=== PATIENT | male | born 1955 | race Caucasian/White ===

== ENCOUNTER 2022-12-03 13:52 | Emergency (ER) | payer MEDICARE, MEDICAID ==
[~2022-12-03] VITALS: Ht 167.6 cm; Wt 59.0 kg
[2022-12-03] MEDS ORDERED: ACETAMINOPHEN 325MG TABLET PO ONE (14:00)
[2022-12-03 14:09] VITALS: BP 158/86
[2022-12-03] MEDS ORDERED: ACETAMINOPHEN 325MG TABLET PO NR (15:45)
== END 2022-12-03 16:00 | disposition home or self-care (01) ==
LOC: ER 13:52
DX: S93.691A Other sprain of right foot, initial encounter (principal); S90.31XA Contusion of right foot, initial encounter; I10 Essential (primary) hypertension; W10.8XXA Fall (on) (from) other stairs and steps, initial encounter; Y93.89 Activity, other specified; Y92.018 Other place in single-family (private) house as the place of occurrence of the external cause
CPT/HCPCS: 73610; 73630; 99284

== ENCOUNTER 2024-07-23 16:57 | Inpatient (IN) | payer MEDICARE, MEDICAID ==
[~2024-07-23] VITALS: Ht 165.1 cm; Wt 60.3 kg
[2024-07-23 17:53] LABS: CHLORIDE 109 mEq/L (98-107); POTASSIUM 3.2 mEq/L (3.5-5.1); SODIUM 141 mEq/L (136-145)
[2024-07-23 17:54] LABS: CALCIUM 8.7 mg/dL (8.7-10.4); CARBON DIOXIDE 26 mEq/L (21-32); INR 1.1; PARTIAL THROMBOPLASTIN TIME 31.9 sec (23.4-31.0); PROTHROMBIN TIME 12.6 sec (9.6-11.0)
[2024-07-23 17:59] LABS: CREATININE 1.7 mg/dL (0.6-1.3); GLUCOSE 104 mg/dL (70-105); UREA NITROGEN BLOOD 15 mg/dL (9-23)
[2024-07-23 18:00] LABS: BASOPHILS % 1.3 % (0.0-2.0); EOSINOPHILS % 1.3 % (0.0-5.0); HEMOGLOBIN. 11.5 g/dL (14.0-18.0); LYMPHOCYTES % 24.1 % (20.0-50.0); MEAN CORPUSCULAR HEMOGLOBIN 20.7 pg (28.0-32.0); MEAN CORPUSCULAR HGB CONC 31.1 g/dL (31.0-37.0); MEAN CORPUSCULAR VOLUME 66.8 fL (80.0-94.0); MEAN PLATELET VOLUME 8.5 fl (7.4-10.4); MONOCYTES % 4.5 % (2.0-8.0); NEUTROPHILS % 68.8 % (40.0-76.0); PLATELET 284 x1000/uL (130-400); RED BLOOD CELL COUNT 5.54 mill/uL (4.7-6.1); RED CELL DISTRIBUTION WIDTH 19.6 % (11.6-14.6); TROPONIN I HIGH SENSITIVITY 34 ng/L (3.0-53); WHITE BLOOD COUNT 7.6 x1000/uL (4.5-11.0)
[2024-07-23 18:01] LABS: ADD RBC MORPHOLOGY YES; DIFFERENTIAL COMMENT 1
[2024-07-23 18:46] LABS: ALANINE AMINOTRANSFERASE 20 IU/L (10-49); ALBUMIN 3.8 g/dL (3.2-4.8); ASPARTATE AMINOTRANSFERASE 37 IU/L (<34); BILIRUBIN DIRECT 0.3 mg/dL (<=3.0); BILIRUBIN TOTAL 0.8 mg/dL (0.1-1.0); PROTEIN TOTAL 6.3 g/dL (6.0-8.3)
[2024-07-23 18:58] LABS: ANISOCYTOSIS 1+; HYPOCHROMASIA 1+; MICROCYTOSIS 1+; PLATELET ESTIMATE NORMAL
[2024-07-23] MEDS: FUROSEMIDE 40MG/4ML VIAL IVP ONE (19:25)
[2024-07-24] VITALS (7 sets, daily range): BP systolic 117–127; BP diastolic 78–93; PULSE 70–94; RESP 16–20; TEMP 36.22512–36.696; O2SAT 99–100
[2024-07-24] MEDS ORDERED: ONDANSETRON HCL 4MG/2ML INJ IV PRN (08:00)
[2024-07-24] MEDS ORDERED: IPRATROPIUM/ALBUTEROL 0.5-3(2.5)MG/3ML NEB HHN PRN (08:00)
[2024-07-24 08:15] LABS: CLARITY URINE CLEAR (CLEAR); COLOR URINE YELLOW (YELLOW); GLUCOSE URINE NEGATIVE (NEGATIVE); KETONES URINE NEGATIVE (NEGATIVE); LEUKOCYTE ESTERASE URINE NEGATIVE (NEGATIVE); NITRITE URINE NEGATIVE (NEGATIVE); OCCULT BLOOD URINE NEGATIVE (NEGATIVE); PROTEIN URINE 2+ (NEGATIVE); SPECIFIC GRAVITY URINE 1.009 (1.005-1.030); UROBILINOGEN URINE 0.2 E.U./dL (0.2-1.0)
[2024-07-24] MEDS: POTASSIUM CHLORIDE 20MEQ TABLET SR PO SCH (08:19)
[2024-07-24] MEDS: ENOXAPARIN 40MG/0.4ML SYR SUBCUT SCH (08:19)
[2024-07-24] MEDS: FUROSEMIDE 40MG/4ML VIAL IVP SCH (08:20)
[2024-07-24 08:31] LABS: *AMPHETAMINES SCREEN URINE NEGATIVE (NEGATIVE); *BARBITURATES SCREEN URINE NEGATIVE (NEGATIVE); *BENZODIAZEPINES SCREEN URINE NEGATIVE (NEGATIVE); *COCAINE SCREEN URINE PRESUMPTIVE POSITIVE (NEGATIVE); METHADONE URINE SCREEN NEGATIVE (NEGATIVE); OPIATES URINE SCREEN NEGATIVE (NEGATIVE)
[2024-07-24 08:32] LABS: CANNABINOID URINE SCREEN NEGATIVE (NEGATIVE); ECSTASY MDMA SCREEN URINE NEGATIVE (NEGATIVE); PHENCYCLIDINE URINE SCREEN NEGATIVE (NEGATIVE)
[2024-07-24 08:38] LABS: BACTERIA URINE NONE SEEN; RBC URINE NONE SEEN /hpf (0-2); SQUAMOUS EPITHELIAL CELL URINE NONE SEEN /lpf (RARE/1+); WBC URINE 0-2 /hpf (0-2); YEAST URINE NONE SEEN
[2024-07-24 09:29] LABS: HEMATOCRIT. 39.2 % (42.0-52.0); HEMOGLOBIN. 12.2 g/dL (14.0-18.0); MEAN CORPUSCULAR HEMOGLOBIN 20.7 pg (28.0-32.0); MEAN CORPUSCULAR HGB CONC 31.1 g/dL (31.0-37.0); MEAN CORPUSCULAR VOLUME 66.8 fL (80.0-94.0); PLATELET 305 x1000/uL (130-400); RED BLOOD CELL COUNT 5.86 mill/uL (4.7-6.1); RED CELL DISTRIBUTION WIDTH 20.3 % (11.6-14.6); WHITE BLOOD COUNT 7.7 x1000/uL (4.5-11.0)
[2024-07-24 09:31] LABS: CHLORIDE 107 mEq/L (98-107); POTASSIUM 3.3 mEq/L (3.5-5.1); SODIUM 144 mEq/L (136-145)
[2024-07-24 09:33] LABS: CALCIUM 9.1 mg/dL (8.7-10.4); CARBON DIOXIDE 29 mEq/L (21-32)
[2024-07-24 09:38] LABS: CREATININE 1.5 mg/dL (0.6-1.3); GLUCOSE 82 mg/dL (70-105); TRIGLYCERIDE 88 mg/dL (0-150); UREA NITROGEN BLOOD 14 mg/dL (9-23)
[2024-07-24 09:39] LABS: LDL CHOLESTEROL 81 mg/dL (5-100)
[2024-07-24 09:40] LABS: ALANINE AMINOTRANSFERASE 19 IU/L (10-49); ALBUMIN 4.1 g/dL (3.2-4.8); ASPARTATE AMINOTRANSFERASE 37 IU/L (<34); CHOLESTEROL 148 mg/dL (<200); HDL CHOLESTEROL 52 mg/dL (>55); PROTEIN TOTAL 6.6 g/dL (6.0-8.3)
[2024-07-24 09:42] LABS: THYROID STIMULATING HORMONE 4.28 uIU/mL (0.55-4.78)
[2024-07-24 10:38] LABS: DIFFERENTIAL COMMENT 1
[2024-07-24 11:35] LABS: ANISOCYTOSIS 2+; MICROCYTOSIS 2+; PLATELET ESTIMATE NORMAL
[2024-07-24 16:35] LABS: TROPONIN I HIGH SENSITIVITY 30 ng/L (3.0-53)
[2024-07-24] MEDS: ZOLPIDEM TARTRATE 5MG TABLET PO PRN (21:42)
[2024-07-24 22:49] LABS: TROPONIN I HIGH SENSITIVITY 35 ng/L (3.0-53)
[2024-07-25] VITALS: BP 120/84; PULSE 88; RESP 18; TEMP 36.16956; O2SAT 99
[2024-07-25 04:00] VITALS: BP 121/85; PULSE 86; RESP 16; TEMP 36.3918; O2SAT 99
[2024-07-25] MEDS: PANTOPRAZOLE 40MG DR TABLET PO SCH (06:44)
[2024-07-25 08:00] VITALS: BP 139/79; PULSE 89; RESP 17; TEMP 36.6696; O2SAT 98
[2024-07-25] MEDS: FUROSEMIDE 40MG/4ML VIAL IVP SCH (08:54)
[2024-07-25] MEDS: POTASSIUM CHLORIDE 20MEQ TABLET SR PO SCH (08:54)
[2024-07-25 12:00] VITALS: BP 129/80; PULSE 87; RESP 18; TEMP 36.55848; O2SAT 99
[2024-07-25 16:00] VITALS: BP 136/82; PULSE 86; RESP 18; TEMP 36.55848; O2SAT 98
[2024-07-25 20:00] VITALS: BP 132/89; PULSE 84; RESP 18; TEMP 36.44736; O2SAT 98
[2024-07-26 04:00] VITALS: BP 128/88; PULSE 80; RESP 19; TEMP 36.55848; O2SAT 90
[2024-07-26 08:00] VITALS: BP 122/91; PULSE 79; RESP 20; TEMP 36.44736; O2SAT 96
[2024-07-26 12:00] VITALS: BP 128/87; PULSE 83; RESP 17; TEMP 36.6696; O2SAT 98
[2024-07-26] MEDS ORDERED: FURO-151 MT (12:52)
[2024-07-26] MEDS ORDERED: PANT40TA51 PO (12:52)
[2024-07-26] MEDS ORDERED: POTA-204 PO (12:52)
[2024-07-26] MEDS ORDERED: ASPI-1079 PO (14:49)
[2024-07-26 15:07] VITALS: BP 131/82; PULSE 82; TEMP 97.9; O2SAT 96
[2024-07-26 16:00] VITALS: BP 131/82; PULSE 76; RESP 18; TEMP 36.61404; O2SAT 96
== END 2024-07-26 17:30 | disposition home or self-care (01) | DRG 291 ==
LOC: ER 16:57 → 7EST 19:12 → EDBEDREQ 19:14 → EDBEDREQTM 19:14
PROVIDERS: ADMIT Internal Medicine; ATTEND Internal Medicine
DX: I13.0 Hypertensive heart and chronic kidney disease with heart failure and stage 1 through stage 4 chronic kidney disease, or unspecified chronic kidney disease (principal); I50.23 Acute on chronic systolic (congestive) heart failure; N17.9 Acute kidney failure, unspecified; F19.90 Other psychoactive substance use, unspecified, uncomplicated; N18.9 Chronic kidney disease, unspecified
CPT/HCPCS: 36415; 71045; 80048; 80053; 80061; 80076; 80305; 81003; 83880; 84439; 84443; 84484; 85025; 93005; 93306; 93970; 99285; J1650; J1940

== ENCOUNTER 2024-08-09 16:07 | Inpatient (IN) | payer MEDICARE, MEDICAID ==
[~2024-08-09] VITALS: Ht 154.7 cm; Wt 58.5 kg
[~2024-08-09 16:07] MED LIST: ASPI-1079 PO; FURO-151 MT; PANT40TA51 PO; POTA-204 PO
[2024-08-09 16:38] LABS: HEMATOCRIT. 35.6 % (42.0-52.0); HEMOGLOBIN. 11.2 g/dL (14.0-18.0); MEAN CORPUSCULAR HEMOGLOBIN 20.6 pg (28.0-32.0); MEAN CORPUSCULAR HGB CONC 31.3 g/dL (31.0-37.0); MEAN CORPUSCULAR VOLUME 65.9 fL (80.0-94.0); MEAN PLATELET VOLUME 8.4 fl (7.4-10.4); PLATELET 327 x1000/uL (130-400); RED BLOOD CELL COUNT 5.41 mill/uL (4.7-6.1); RED CELL DISTRIBUTION WIDTH 20.3 % (11.6-14.6); WHITE BLOOD COUNT 7.1 x1000/uL (4.5-11.0)
[2024-08-09 16:44] LABS: CHLORIDE 110 mEq/L (98-107); POTASSIUM 3.6 mEq/L (3.5-5.1); SODIUM 146 mEq/L (136-145)
[2024-08-09 16:45] LABS: CALCIUM 8.5 mg/dL (8.7-10.4); CARBON DIOXIDE 28 mEq/L (21-32)
[2024-08-09 16:49] LABS: DIFFERENTIAL COMMENT 1
[2024-08-09 16:50] LABS: GLUCOSE 94 mg/dL (70-105); UREA NITROGEN BLOOD 24 mg/dL (9-23)
[2024-08-09 16:51] LABS: TROPONIN I HIGH SENSITIVITY 32 ng/L (3.0-53)
[2024-08-09 17:19] LABS: CREATININE 2.1 mg/dL (0.6-1.3)
[2024-08-09 17:26] LABS: ALANINE AMINOTRANSFERASE 16 IU/L (10-49); ALBUMIN 4.1 g/dL (3.2-4.8); ASPARTATE AMINOTRANSFERASE 30 IU/L (<34); BILIRUBIN DIRECT 0.2 mg/dL (<=3.0); BILIRUBIN TOTAL 0.5 mg/dL (0.1-1.0); PROTEIN TOTAL 6.2 g/dL (6.0-8.3)
[2024-08-09 17:28] LABS: ETHANOL BLOOD < 10 mg/dL (<10)
[2024-08-09] MEDS ORDERED: FUROSEMIDE 40MG/4ML VIAL IVP ONE (19:15)
[2024-08-09 21:06] LABS: ANISOCYTOSIS 2+; HYPOCHROMASIA 2+; MICROCYTOSIS 3+; OVALOCYTES 1+; PLATELET ESTIMATE NORMAL
[2024-08-09] MEDS: FUROSEMIDE 40MG/4ML VIAL IVP NR (23:00)
[2024-08-10] MEDS: ASPIRIN 81MG TABLET PO SCH (10:20)
[2024-08-10] MEDS: FUROSEMIDE 40MG TABLET PO SCH (10:20)
[2024-08-10] MEDS: ENOXAPARIN 30MG/0.3ML SYR SUBCUT SCH (11:47)
[2024-08-10] MEDS: SODIUM CHLORIDE 0.9% 3ML FLUSH IVF SCH (14:24)
[2024-08-10 16:00] VITALS: BP 115/66; PULSE 89; RESP 20; TEMP 36.6696; O2SAT 100
[2024-08-10 17:17] VITALS: BP 80/51; PULSE 82; RESP 18; TEMP 36.14
[2024-08-10 20:00] VITALS: BP 118/75; PULSE 73; RESP 18; TEMP 36.55848; O2SAT 99
[2024-08-10] MEDS: ZOLPIDEM TARTRATE 5MG TABLET PO PRN (21:31)
[2024-08-11] VITALS: BP 133/108; PULSE 95; RESP 18; TEMP 36.61404; O2SAT 100
[2024-08-11] MEDS: POTASSIUM CHLORIDE 20MEQ TABLET SR PO SCH (02:18)
[2024-08-11 05:39] LABS: *AMPHETAMINES SCREEN URINE NEGATIVE (NEGATIVE); *BARBITURATES SCREEN URINE NEGATIVE (NEGATIVE); *BENZODIAZEPINES SCREEN URINE NEGATIVE (NEGATIVE); *COCAINE SCREEN URINE NEGATIVE (NEGATIVE); CANNABINOID URINE SCREEN NEGATIVE (NEGATIVE); ECSTASY MDMA SCREEN URINE NEGATIVE (NEGATIVE); METHADONE URINE SCREEN NEGATIVE (NEGATIVE); OPIATES URINE SCREEN NEGATIVE (NEGATIVE); PHENCYCLIDINE URINE SCREEN NEGATIVE (NEGATIVE)
[2024-08-11 05:46] VITALS: PULSE 79; RESP 20; O2SAT 96
[2024-08-11] MEDS: IPRATROPIUM/ALBUTEROL 0.5-3(2.5)MG/3ML NEB HHN PRN (05:46)
[2024-08-11] MEDS: HYDRALAZINE 20MG/ML VIAL IV NR (07:13)
[2024-08-11] MEDS: METHYLPREDNISOLONE SOD SUCC 40MG/ML (ACT-O-VIAL) IV NR (07:27)
[2024-08-11 07:47] LABS: BG BASE EXCESS -0.4 mmol/L (-2.0-3.0); BG CARBOXYHEMOGLOBIN 0.4 % (0.5-1.5); BG DEOXYHEMOGLOBIN 1.5 % (0.0-5.0); BG FRACTION INSPIRED OXYGEN 21; BG HCO3 ACT 21.1 mmol/L (21.0-28.0); BG METHEMOGLOBIN 0.3 % (0.5-1.5); BG OXYGEN SATURATION 98.5 % (94.0-98.0); BG OXYHEMOGLOBIN 97.8 % (94.0-98.0); BG PCO2 25.8 mmHg (35.0-48.0); BG PH 7.531 (7.350-7.450); BG PO2 105.1 mmHg (83.0-108.0); BG SAMPLE SITE RIGHT BRACHIAL; BG TOTAL HEMOGLOBIN 11.5 g/dL (13.5-17.5); BG VENT MODE ROOM AIR
[2024-08-11 08:07] VITALS: BP 132/92; PULSE 77; RESP 18; TEMP 36.33624; O2SAT 100
[2024-08-11] MEDS: LOSARTAN 25 MG TABLET PO SCH (08:16)
[2024-08-11] MEDS: CARVEDILOL 3.125 MG TABLET PO SCH (08:16)
[2024-08-11] MEDS: FUROSEMIDE 40MG/4ML VIAL IVP SCH (08:16)
[2024-08-11] MEDS ORDERED: POTASSIUM CHLORIDE 20MEQ TABLET SR PO SCH (09:00)
[2024-08-11 11:58] VITALS: BP 132/103; PULSE 72; RESP 18; TEMP 36.50292; O2SAT 100
[2024-08-11 13:30] LABS: HEMATOCRIT 36.7 % (42.0-52.0); HEMOGLOBIN 11.6 g/dL (14.0-18.0); MEAN CORPUSCULAR HEMOGLOBIN 20.7 pg (28.0-32.0); MEAN CORPUSCULAR HGB CONC 31.5 g/dL (31.0-37.0); MEAN CORPUSCULAR VOLUME 65.9 fL (80.0-94.0); PLATELET 287 x1000/uL (130-400); RED BLOOD CELL COUNT 5.57 mill/uL (4.7-6.1); RED CELL DISTRIBUTION WIDTH 20.6 % (11.6-14.6); WHITE BLOOD COUNT 6.5 x1000/uL (4.5-11.0)
[2024-08-11 13:36] LABS: POTASSIUM 4.3 mEq/L (3.5-5.1)
[2024-08-11 13:42] LABS: CREATININE 1.8 mg/dL (0.6-1.3)
[2024-08-11 16:11] VITALS: BP 137/92; PULSE 68; RESP 19; TEMP 36.44736; O2SAT 98
[2024-08-11 20:00] VITALS: BP 135/93; PULSE 71; RESP 19; TEMP 37.05852; O2SAT 98
[2024-08-12] VITALS (7 sets, daily range): BP systolic 122–154; BP diastolic 73–100; PULSE 75–104; RESP 18–21; TEMP 36.28068–36.78072; O2SAT 94–100
[2024-08-12 07:54] LABS: HEMATOCRIT 34.1 % (42.0-52.0); HEMOGLOBIN 10.7 g/dL (14.0-18.0); MEAN CORPUSCULAR HEMOGLOBIN 20.7 pg (28.0-32.0); MEAN CORPUSCULAR HGB CONC 31.3 g/dL (31.0-37.0); MEAN CORPUSCULAR VOLUME 66.1 fL (80.0-94.0); PLATELET 277 x1000/uL (130-400); RED BLOOD CELL COUNT 5.16 mill/uL (4.7-6.1); RED CELL DISTRIBUTION WIDTH 20.6 % (11.6-14.6); WHITE BLOOD COUNT 11.6 x1000/uL (4.5-11.0)
[2024-08-12 08:17] LABS: POTASSIUM 4.3 mEq/L (3.5-5.1)
[2024-08-12 08:18] LABS: CALCIUM 8.8 mg/dL (8.7-10.4)
[2024-08-12 08:21] LABS: CREATININE 1.8 mg/dL (0.6-1.3)
[2024-08-12] MEDS: ACETAMINOPHEN 325MG TABLET PO PRN (12:13)
[2024-08-12] MEDS: ONDANSETRON HCL 4MG/2ML INJ IV PRN (12:13)
[2024-08-12] MEDS: DOCUSATE SODIUM 100MG CAPSULE PO SCH (16:12)
[2024-08-13] VITALS: BP 127/94; PULSE 82; RESP 18; TEMP 36.16956; O2SAT 100
[2024-08-13 08:00] VITALS: BP 122/88; PULSE 72; RESP 20; RESP 3; TEMP 36.16956; O2SAT 100
[2024-08-13 12:00] VITALS: BP 120/78; PULSE 66; RESP 20; TEMP 36.114; O2SAT 97
[2024-08-13 13:20] LABS: HEMOGLOBIN 10.7 g/dL (14.0-18.0); MEAN CORPUSCULAR HEMOGLOBIN 20.7 pg (28.0-32.0); MEAN CORPUSCULAR HGB CONC 30.7 g/dL (31.0-37.0); MEAN CORPUSCULAR VOLUME 67.5 fL (80.0-94.0); PLATELET 261 x1000/uL (130-400); RED BLOOD CELL COUNT 5.18 mill/uL (4.7-6.1); RED CELL DISTRIBUTION WIDTH 20.4 % (11.6-14.6); WHITE BLOOD COUNT 8.1 x1000/uL (4.5-11.0)
[2024-08-13 14:41] LABS: POTASSIUM 5.4 mEq/L (3.5-5.1)
[2024-08-13 14:43] LABS: CALCIUM 8.4 mg/dL (8.7-10.4)
[2024-08-13 14:47] LABS: CREATININE 2.3 mg/dL (0.6-1.3)
[2024-08-13 16:00] VITALS: BP 115/77; PULSE 61; RESP 20; TEMP 36.6696; O2SAT 99
[2024-08-13] MEDS: FUROSEMIDE 40MG/4ML VIAL IVP SCH (17:33)
[2024-08-13 20:00] VITALS: BP 148/109; PULSE 80; RESP 18; TEMP 36.50292; O2SAT 99
[2024-08-14] VITALS: BP 158/125; PULSE 92; RESP 18; TEMP 36.05844; O2SAT 100
[2024-08-14 04:00] VITALS: BP 114/76; PULSE 69; RESP 18; TEMP 36.22512; O2SAT 100
[2024-08-14] MEDS ORDERED: PANTOPRAZOLE 40MG DR TABLET PO SCH (07:20)
[2024-08-14 08:00] VITALS: BP 124/85; PULSE 65; RESP 20; TEMP 36.114; O2SAT 97
[2024-08-14 08:25] LABS: HEMATOCRIT 36.6 % (42.0-52.0); HEMOGLOBIN 11.4 g/dL (14.0-18.0); MEAN CORPUSCULAR HEMOGLOBIN 20.7 pg (28.0-32.0); MEAN CORPUSCULAR HGB CONC 31.1 g/dL (31.0-37.0); MEAN CORPUSCULAR VOLUME 66.5 fL (80.0-94.0); PLATELET 303 x1000/uL (130-400); RED BLOOD CELL COUNT 5.49 mill/uL (4.7-6.1); WHITE BLOOD COUNT 8.3 x1000/uL (4.5-11.0)
[2024-08-14 08:30] LABS: POTASSIUM 5.8 mEq/L (3.5-5.1)
[2024-08-14 08:32] LABS: CALCIUM 8.7 mg/dL (8.7-10.4)
[2024-08-14 08:36] LABS: CREATININE 2.7 mg/dL (0.6-1.3)
[2024-08-14] MEDS: LOSARTAN 50 MG TABLET PO SCH (09:00)
[2024-08-14] MEDS: FAMOTIDINE 20MG TABLET PO SCH (10:05)
[2024-08-14 12:00] VITALS: BP 115/82; PULSE 72; RESP 20; TEMP 36.114; O2SAT 97
[2024-08-14] MEDS ORDERED: SODIUM POLYSTYRENE SULFONATE 15 G/60 ML BOT PO ONE (12:30)
[2024-08-14] MEDS: SODIUM ZIRCONIUM CYCLOSILICATE 10GM/PACKET PO SCH (15:27)
[2024-08-14 16:00] VITALS: BP 118/82; PULSE 66; RESP 19; TEMP 36.6696; O2SAT 97
[2024-08-14 20:00] VITALS: BP 143/96; PULSE 79; RESP 18; TEMP 36.3918; O2SAT 97
[2024-08-15] VITALS: BP 133/93; PULSE 75; RESP 18; TEMP 36.50292; O2SAT 98
[2024-08-15 04:00] VITALS: BP 123/96; PULSE 73; RESP 18; TEMP 36.50292; O2SAT 98
[2024-08-15 06:30] LABS: POTASSIUM 4.1 mEq/L (3.5-5.1)
[2024-08-15 06:32] LABS: CALCIUM 8.8 mg/dL (8.7-10.4)
[2024-08-15 06:35] LABS: CREATININE 2.6 mg/dL (0.6-1.3)
[2024-08-15 06:57] LABS: HEMATOCRIT 35.3 % (42.0-52.0); HEMOGLOBIN 11.2 g/dL (14.0-18.0); MEAN CORPUSCULAR HEMOGLOBIN 20.8 pg (28.0-32.0); MEAN CORPUSCULAR HGB CONC 31.7 g/dL (31.0-37.0); MEAN CORPUSCULAR VOLUME 65.7 fL (80.0-94.0); PLATELET 286 x1000/uL (130-400); RED BLOOD CELL COUNT 5.37 mill/uL (4.7-6.1); RED CELL DISTRIBUTION WIDTH 20.5 % (11.6-14.6); WHITE BLOOD COUNT 6.6 x1000/uL (4.5-11.0)
[2024-08-15 08:00] VITALS: BP 140/87; PULSE 70; RESP 20; TEMP 36.28068; O2SAT 99
[2024-08-15] MEDS: FUROSEMIDE 40MG/4ML VIAL IVP SCH (16:45)
[2024-08-15 20:00] VITALS: BP 132/87; PULSE 76; RESP 20; TEMP 36.55848; O2SAT 100
[2024-08-16] VITALS: BP 143/88; PULSE 75; RESP 19; TEMP 36.61404; O2SAT 100
[2024-08-16] MEDS: ZOLPIDEM TARTRATE 5MG TABLET PO PRN (00:11)
[2024-08-16 04:00] VITALS: BP 131/77; PULSE 77; RESP 20; TEMP 36.55848; O2SAT 99
[2024-08-16 08:00] VITALS: BP 116/70; PULSE 73; RESP 19; TEMP 36.72516; O2SAT 98
[2024-08-16 14:33] VITALS: BP 124/67; PULSE 72; O2SAT 95
[2024-08-16 14:35] VITALS: BP 116/70; PULSE 73; TEMP 98.1; O2SAT 98
== END 2024-08-16 15:15 | DRG 291 ==
LOC: ER 16:07 → 5WST 19:02 → EDBEDREQ 19:26 → EDBEDREQTM 19:26 → 7WST 08-10 16:37 → 6WST 08-12 20:51
PROVIDERS: ADMIT Internal Medicine; ATTEND Internal Medicine
DX: I11.0 Hypertensive heart disease with heart failure (principal); I50.23 Acute on chronic systolic (congestive) heart failure; N17.9 Acute kidney failure, unspecified; M85.80 Other specified disorders of bone density and structure, unspecified site; D64.9 Anemia, unspecified; E87.5 Hyperkalemia; Z91.199 Patient's noncompliance with other medical treatment and regimen due to unspecified reason
CPT/HCPCS: 36415; 36600; 71045; 80048; 80076; 80305; 80320; 82375; 82805; 83880; 84484; 85025; 85027; 93005; 94640; 97162; 99291; J0360; J1650; J1940; J2405; J2920; G0480

== ENCOUNTER 2024-08-23 11:22 | Emergency (ER) | payer OTHER, MEDICAID ==
[~2024-08-23] VITALS: Ht 175.3 cm; Wt 59.0 kg
[2024-08-23 11:24] VITALS: O2SAT 94
[2024-08-23 12:09] LABS: CHLORIDE 108 mEq/L (98-107); POTASSIUM 3.7 mEq/L (3.5-5.1); SODIUM 142 mEq/L (136-145)
[2024-08-23 12:10] LABS: CALCIUM 8.6 mg/dL (8.7-10.4); CARBON DIOXIDE 26 mEq/L (21-32)
[2024-08-23 12:15] LABS: CREATININE 2.3 mg/dL (0.6-1.3); GLUCOSE 140 mg/dL (70-105); UREA NITROGEN BLOOD 38 mg/dL (9-23)
[2024-08-23 12:18] LABS: TROPONIN I HIGH SENSITIVITY 28 ng/L (3.0-53)
[2024-08-23 12:27] LABS: INR 1.2; PROTHROMBIN TIME 13.7 sec (9.6-11.0)
[2024-08-23 12:35] LABS: HEMATOCRIT. 35.3 % (42.0-52.0); HEMOGLOBIN. 10.8 g/dL (14.0-18.0); MEAN CORPUSCULAR HEMOGLOBIN 19.9 pg (28.0-32.0); MEAN CORPUSCULAR HGB CONC 30.5 g/dL (31.0-37.0); MEAN CORPUSCULAR VOLUME 65.3 fL (80.0-94.0); PLATELET 227 x1000/uL (130-400); RED CELL DISTRIBUTION WIDTH 20.7 % (11.6-14.6)
[2024-08-23 12:40] LABS: DIFFERENTIAL COMMENT 1
[2024-08-23 12:41] LABS: WHITE BLOOD COUNT 9.9 x1000/uL (4.5-11.0)
[2024-08-23] MEDS: SODIUM CHLORIDE 0.9% 1,000 ML IV ONE (13:00)
[2024-08-23 13:58] LABS: ETHANOL BLOOD < 10 mg/dL (<10)
[2024-08-23 13:59] VITALS: TEMP 37.05852; O2SAT 94
[2024-08-23 14:01] VITALS: BP 143/102; PULSE 95; RESP 20; TEMP 98.7
[2024-08-23 15:20] LABS: ANISOCYTOSIS 2+; MICROCYTOSIS 3+; OVALOCYTES 1+; PLATELET ESTIMATE NORMAL; TARGET CELLS 1+
== END 2024-08-23 16:37 | disposition left against medical advice (07) ==
LOC: ER 11:22 → EDBEDREQ 15:18 → CANBEDREQ 16:27 → ER 16:37
DX: R07.89 Other chest pain (principal); F19.90 Other psychoactive substance use, unspecified, uncomplicated; I11.0 Hypertensive heart disease with heart failure; I25.2 Old myocardial infarction; I50.9 Heart failure, unspecified; Z79.899 Other long term (current) drug therapy
CPT/HCPCS: 80048; 80320; 83880; 83690; 85025; 85610; 84484; 36415; 71045; 70450; 93005; 96360; 99291; J7030; G0480